=== PATIENT | female | born 1980 | race Caucasian/White ===

== ENCOUNTER 2020-11-16 19:20 | Observation (INO) | payer BC, SELFPAY ==
--- NOTE | ~2020-11-16 | CT_ITS ---
EXAMINATION: CT thoracic spine wo con DATE: 11/17/2020 18:32 INDICATION: Numbness and tingling of the chest and inferior to the chest. TECHNIQUE: Computed tomography (CT) of the thoracic spine was performed without intravenous contrast. Automated exposure control and iterative reconstruction technique were employed. The dose-length pro duct was 1164.09 mGy-cm. COMPARISON: None FINDINGS: There is 9 degrees dextrocurvature of thoracic spine. There is mild chronic anterior wedgin g of T7 vertebral body. There is mildly decreased disc height at T6-T7 and T7-T8. At T5-T6, there is a left central extrusion with mild central canal stenosis. At T6-T7, there is a central protrusion wi th mild central canal stenosis. At T7-T8, there is a right central extrusion with mild central canal stenosis. There is multilevel mild facet joint osteoarthritis. No neural foraminal stenosis. IMPRESSION: 1. Mild thoracic spondylosis. Reviewed, dictated and finalized at location A.
--- NOTE | ~2020-11-16 | XR_ITS ---
EXAMINATION: XR lumbar puncture diagnostic EXAM DATE: 11/17/2020 12:07 INDICATION: Ascending numbness started in legs and extending up to arms. TECHNIQUE: Procedure performed and completed on 11/17/2020 12:07. Informed consent was obtained from the patient for doing this procedure. I discussed benefits and risks including bleeding, infection, backache and headache. Alternatives also discussed. The DAP for this procedure was 13.4 Gycm2. Pulse d dose reduction fluoroscopy was used with fluoroscopic time of 0.2 minutes. A total of 5 images obta ined for the exam. A timeout procedure was performed. The back was prepped in standard sterile fashion with Betadine. L4-5 entry site was chosen under fluoroscopic guidance and infiltrated with 2 mL 1% lidocaine. The t hecal sac was then approached from a right paracentral approach using a 5 22G needle. Could not obta in free flow of contrast at this level in spite of needle appearing to be positioned within the theca l canal. The level immediately above, L3-4 was already prepped, and infiltrated with an additional 2 mL of 1% lidocaine. A right paracentral approach was then used at this level with a new 5 inch 22-gauge needle . CSF freely flowed from this location. Opening pressure was less than the length of the needle, arnie ent was placed in reverse Trendelenburg to allow CSF to flow. A total of 11 mL clear cerebral spinal fluid were then drained and placed in 4 consecutive vials which were labeled and sent to lab for kinza lysis. There were no immediate complications. IMPRESSION: Status post fluoroscopic guided lumbar puncture. Reviewed, dictated and finalized at location A.
--- NOTE | ~2020-11-16 | CT_ITS ---
EXAMINATION: CT lumbar spine wo con DATE: 11/17/2020 01:14 INDICATION: Leg numbness and tingling TECHNIQUE: Computed tomography (CT) of the lumbar spine was performed without intravenous contrast. A utomated exposure control and iterative reconstruction technique were employed. The dose-length produ ct was 1280.41 mGy-cm. COMPARISON: None FINDINGS: Proximally degree lumbar levocurvature. Sagittal alignment is normal. Vertebral body heights are norm al. No fracture. Shallow Schmorl's nodes at both sides of the 11 T12 and T12-L1 disc spaces. Disc hei ghts are normal. Mild disc bulges from L1-L2 through L4-L5 resulting in mild central canal stenosis a t L3-L4 and L4-L5. Multilevel mild bilateral facet osteoarthritis throughout the lumbar spine. Mild b ilateral neural foraminal stenosis at L3-L4 and L4-L5. Cholecystectomy clips at the gallbladder fossa . Paravertebral soft tissues are otherwise unremarkable. IMPRESSION: 1. Mild lumbar levocurvature with mild spondylosis. No acute osseous abnormality. Reviewed, dictated and finalized at location A. IMPRESSION: 1. Mild lumbar levocurvature with mild spondylosis. No acute osseous abnormalit y.
--- NOTE | ~2020-11-16 | CT_ITS ---
EXAMINATION: CT brain wo con DATE: 11/17/2020 01:14 INDICATION: Leg numbness and tingling TECHNIQUE: Computed tomography (CT) of the head was performed without intravenous contrast. Sagittal and coronal reconstructions were performed. The mA was adjusted according to patient size. Iterative reconstruction technique was employed. The dose-length product was 605.33 mGy-cm. COMPARISON: None FINDINGS: Postoperative change of bilateral mastoidectomies with bilateral cochlear implant placement. There is secondary streak artifact which obscures portions of the bilateral parietal lobes. No acute intracra nial hemorrhage, acute infarction or abnormal extra axial fluid collection. Ventricles are normal and symmetric. No mass/mass effect. Small right mastoid effusion. The orbits and paranasal sinuses are n ormal. IMPRESSION: 1. No acute intracranial process with assessment in the region of the posterior parietal lobes limite d by streak artifact from bilateral cochlear implants. Reviewed, dictated and finalized at location A. IMPRESSION: 1. No acute intracranial process with assessment in the region of the posterior parietal lobes limited by streak artifact from bilateral cochlear implants.
--- NOTE | ~2020-11-16 | CT_ITS ---
EXAMINATION: CT thoracic spine w con EXAM DATE: 11/18/2020 12:25 INDICATION: T4 symptoms, numbness. Tingling- r/o impingement. MR contraindication of cochlear implant . TECHNIQUE: Spiral CT thoracic spine was performed following following myelogram, intrathecal injecti on of 10 mL Omnipaque 300 solution. Axial, coronal and sagittal images were reviewed. The dose-lizzie th product (DLP) for this examination was 1264.20 mGy-cm. The exposure was tailored according to pat ient size (auto mA exposure control), and iterative reconstruction (ASIR) was used as additional dose reduction technique. Correlation is made to noncontrast thoracic CT from yesterday. FINDINGS: There is good intrathecal opacification, no myelographic block. Mild mid and lower thoracic disc disease with small midthoracic disc bulges and protrusions, some of which indent the spinal cor d anteriorly, but cause no more than mild central canal stenosis. The largest protrusion projects 4 m m into the canal, indenting the spinal cord on right anterior aspect is at the T7-8 level (axial imag e 63). The spinal cord otherwise has uniform thickness throughout. Thoracic neural foramen also appea r widely patent. No endplate erosive change or evidence of extra-axial collection. The thoracic facet joints are unremarkable. Paraspinal soft tissue is unremarkable. IMPRESSION: Mild mid and lower thoracic disc disease, with cord being indented anteriorly at several levels, but no more than mild central canal stenosis. Reviewed, dictated and finalized at location A.
--- NOTE | ~2020-11-16 | XR_ITS ---
EXAMINATION: XR myelogram spine thoracic EXAM DATE: 11/18/2020 12:30 INDICATION: T4 symptoms, numbness, tingling. Clinical concern for cord compression at T4. TECHNIQUE: Informed consent was obtained from the patient for doing intrathecal injection of contras t, myelogram. I discussed benefits and risks including bleeding, infection, backache, headache and s eizure. Alternatives also discussed. The DAP for this procedure was 0.8 Gycm2. Pulsed dose reduction fluoroscopy was used with fluoroscopic time of 0.3 minutes. A total of 19 images obtained for the exa m. Time out procedure was performed. Print Developer radiograph was obtained. An entry site was chosen at the [facility] L3-4 level, the same level as the successful lumbar puncture that was done yesterday. A left par acentral approach was used. Standard sterile prep was done with Betadine. Entry site was infiltrate d with 5 cc 1% lidocaine. A 5 22G spinal needle was then inserted into the spinal canal. 10 mL Omn ipaque 350 solution were then injected into the thecal sac. Patient was placed in Trendelenburg to al low contrast to flow to the thoracic region. Frontal and limited oblique fluoroscopic images thoracic spine were then acquired. The patient was t hen transferred to CT scan for postcontrast imaging. Following this, inpatient was brought back to her room. There were no immediate complications. FINDINGS: There are rudimentary T12 ribs. There is no myelographic block. IMPRESSION: Successful intrathecal injection of contrast. No myelographic block. Reviewed, dictated and finalized at location A. IMPRESSION: Successful intrathecal injection of contrast. No myelographic bloc k.
[2020-11-16 20:20] VITALS: BP 150/74; PULSE 76; RESP 18; TEMP 36.3; O2SAT 100
[2020-11-16 20:57] VITALS: BP 142/72; PULSE 72; RESP 16; TEMP 36.6; O2SAT 99
[2020-11-16 21:57] LABS: Basophils Percent Auto 0.4 % (0.2-1.2); Eosinophils Absolute Auto 0.1 K/mm3 (0-0.3); Eosinophils Percent Auto 1.3 % (0-4.4); Hematocrit 41.8 % (37.0-47.0); Hemoglobin 13.1 g/dL (12.0-15.0); Immature Granulocyte Absolute 0.05 K/mm3 (0.00-0.031); Immature Granulocyte Percent A 0.4 % (0-0.5); Lymphocytes Absolute Auto 2.59 K/mm3 (0.9-3.2); Lymphocytes Percent Auto 23.2 % (18.3-44.2); Mean Corpuscular HGB Conc 31.3 g/dl (32-36); Mean Corpuscular Hemoglobin 26.1 pg (26-34); Mean Corpuscular Volume 83.3 fl (80-100); Mean Platelet Volume 9.5 fl (7.4-10.4); Monocytes Absolute Auto 0.5 K/mm3 (0.1-0.6); Monocytes Percent Auto 4.5 % (2.6-8.5); Neutrophils Absolute Auto 7.9 K/mm3 (1.3-6.7); Neutrophils Percent Auto 70.2 % (45.5-73.1); Platelet Count Result 308 k/mm3 (150-375); Red Blood Count 5.02 M/mm3 (4.2-5.4); Red Cell Distribution Width 16.3 % (11.5-14.5); White Blood Count 11.2 K/mm3 (4.5-10.0)
[2020-11-16 22:10] LABS: Alanine Aminotransferase 20 U/L (4-35); Albumin Level 4.3 g/dL (3.5-5.1); Alkaline Phosphatase 71 U/L (38-126); Anion Gap 6 mmol/L (8-16); Aspartate Amino Transferase 15 U/L (14-36); Bilirubin,Total 0.5 mg/dL (0.2-1.3); Blood Urea Nitrogen 14 mg/dL (7-17); Calcium 9.4 mg/dL (8.4-10.2); Carbon Dioxide 35 mmol/L (22-30); Chloride 99 mmol/L (98-107); Estimated CRCL calculation 113 ml/min; Estimated Glomerular Filt Rate > 60; Glucose 138 mg/dL (65-105); Magnesium 1.9 mg/dL (1.6-2.3); Potassium 3.4 mmol/L (3.4-5.0); Sodium 140 mmol/L (137-145)
[2020-11-16 23:07] VITALS: BP 142/70; PULSE 72; RESP 16; O2SAT 99
--- NOTE | 2020-11-16 23:09 | ED.EXTPRO ---
HPI - Extremity Problem General Chief complaint: Extremity Problem,Nontraumatic Stated complaint: numbness legs x 4 days Time Seen by Provider: 11/16/20 20:57 Source: patient Mode of arrival: ambulatory Limitations: no limitations History of Present Illness HPI Narrative: This is a 40 year old female who presents for evaluation of bilateral leg numbness, tingling. She reports starting on Sunday she woke up with tingling to her feet. She states her numbness and tingling has continued to progress and she feels like it has moved up to her breast. She denies leg weakness, trouble walking, urinary retention or incontinence. She denies URI symtoms, cough, chest pain, diarrhea, nausea, vomiting, abdominal pain or back pain. Related Data Home Medications Medication Instructions Recorded Confirmed Lacto.acidophilus-Bif.animalis 1 cap PO DAILY 11/17/20 11/17/20 [Daily Probiotic] cetirizine [Zyrtec] 10 mg PO DAILY 11/17/20 11/17/20 hgiteezrxjug-avk-khrh-FA-vit K 1 tablet PO DAILY 11/17/20 11/17/20 [Adults Multivitamin] triamterene-hydrochlorothiazid 1.5 tablet PO DAILY 11/17/20 11/17/20 Allergies Allergy/AdvReac Type Severity Reaction Status Date / Time latex Allergy Mild Itching Verified 11/16/20 21:04 Review of Systems Review of Systems: All systems reviewed & are unremarkable except as noted in HPI and below PMFSH Past Medical History Medical History (Updated 11/17/20 @ 06:53 by Laurel Coffey MD) Hearing loss Surgical History Surgical History (Updated 11/16/20 @ 23:11 by Laurel Coffey MD) History of cochlear implant Family History Family History Other No family history of disorders Social History Social History (Updated 11/16/20 @ 23:11 by Laurel Coffey MD) Smoking status: Never smoker Alcohol intake: never Substance use: never Substance use type: does not use Spiritual care concerns: No Exam Const: General: no acute distress and alert Orientation/consciousness: patient oriented x3 Eyes: EOM: EOMs intact bilaterally Chest: Chest palpation & inspection: normal inspection of the chest Resp: Effort & Inspection: normal respiratory effort and no retractions Auscultation: clear to auscultation bilaterally Cardio: Rate: regular rate Rhythm: regular rhythm Heart sounds: no murmurs GI: GI Palp: Yes Soft to palpation, No Tenderness to palpation present (GI) and No Guarding due to palpation present (GI) Auscultation: normal bowel sounds Back/Spine/Pelvis: Back: no CVA tenderness Skin: General skin exam: normal color Rashes: no rashes Neuro: General: patient oriented x3, moves all extremities, no meningeal signs, no focal motor deficits and CN's II-XI intact bilaterally Cranial nerves: Yes Nystagmus not present Speech: normal speech Gait exam (Neuro): Normal gait present Other: patient has equal sensation bilaterally. She is able to feel dull and sharp but states it feels weird. Psych: Mental Status: mental status grossly normal Affect: normal affect Course Consultations Consultation #1: I Discussed with Dr. Win patient presented with ascending numbness, tingling. He recommends admission , MRI and LP. Date: 11/16/20 Time: 23:17 Consultation #2: I discussed case and my discussion with Dr. Win. I discussed patient with cochlear implant. HE recommends Ct brain and he will admit if normal. He is okay with my ordering LP for tomorrow and have patient reassessed tomorrow by Dr. Win for further recommendations Date: 11/17/20 Time: 00:46 Vital Signs Vital signs: Vital Signs Temperature 97.4 F L 11/16/20 20:20 Pulse Rate 76 11/16/20 20:20 Respiratory Rate 18 11/16/20 20:20 Blood Pressure 150/74 H 11/16/20 20:20 Pulse Oximetry 100 11/16/20 20:20 Temperature 98 F 11/17/20 06:00 Pulse Rate 78 11/17/20 06:00 Respiratory Rate 16 11/17/20 06:00 Blood Pressure 142
[2020-11-16 23:32] LABS: Folic Acid > 20.0 ng/mL (2.76->20)
[2020-11-17 02:45] VITALS: BMI 42.3
[2020-11-17 02:50] VITALS: BP 128/73; BP 139/64; PULSE 66; PULSE 78; RESP 16; RESP 18; TEMP 35.9; TEMP 36.7; O2SAT 96; O2SAT 99
--- NOTE | 2020-11-17 03:11 | ADMGEN ---
This patient, Patsy Soriano, was admitted to 3 Med Surg Room 321-02. Patient/family oriented to hospital policies and general routines including ID bracelet, bed and alarms, visiting hours, pain management, procedures, bathroom and other care routines, personal items, smoking policy, room service/diet, and visiting hours. Information on how to activate the Rapid Response Team has been discussed. Patient/Family are encouraged to report perceived risks to care and to ask questions if they do not understand what they are told or what they should do.
[2020-11-17 06:00] VITALS: BP 142/86; PULSE 78; RESP 16; TEMP 36.6; O2SAT 99
--- NOTE | 2020-11-17 09:33 | PM.IMHP ---
H&P: HPI History of Present Illness Date/Time: 11/17/20 09:33 Chief Complaint: Numbness to extremities Narrative: This is a 40 year old woman with history of Meniere's disease and deafness with bilateral cochlear implants, who presented to the ER with complaints of gradually worsening numbness. The patient states she has been in her usual health until Sunday11/13/20, when she woke up with numbness and tingling to her toes. Over the last few days the numbness and tingling has progressively gotten worse and is now under her breasts bilaterally. She denies any pain, weakness, gait disturbance, headache, vision changes, lightheadedness, dizziness, bowel or bladder incontinence, recent illnesses, recent vaccinations, history of COVID-19, sick contacts, trauma to her back or other injury, breathing issues or swallowing issues or any other concerns other than the numbness and tingling. Code Status- Full Code Review of Systems Review of Systems: All systems reviewed & are unremarkable except as noted in HPI and below PMFSH Past Medical History Medical History (Updated 11/17/20 @ 09:43 by Leda Robin PA-C) Allergies Hearing loss Status post cochlear implants bilaterally Menieres disease Surgical History Surgical History History of cochlear implant Family History Family History Other No family history of disorders Social History Social History (Updated 11/17/20 @ 09:38 by Leda Robin PA-C) Smoking status: Never smoker Alcohol intake: never Substance use: never Substance use type: does not use Living arrangements: with family Additional living arrangements comments: The patient lives in [place], [place] and is here visiting her parents during her children's Spring break Additional occupation/education comments: The patient works from home Spiritual care concerns: No Meds Home Medications and Allergies Home Medications Medication Instructions Recorded Confirmed Type Lacto.acidophilus-Bif.animalis 1 cap PO DAILY 11/17/20 11/17/20 History [Daily Probiotic] cetirizine [Zyrtec] 10 mg PO DAILY 11/17/20 11/17/20 History fusbzfqdzrky-nww-ueln-FA-vit K 1 tablet PO DAILY 11/17/20 11/17/20 History [Adults Multivitamin] triamterene-hydrochlorothiazid 1.5 tablet PO DAILY 11/17/20 11/17/20 History Allergies Allergy/AdvReac Type Severity Reaction Status Date / Time latex Allergy Mild Itching Verified 11/16/20 21:04 Vital Signs Vital Signs - 24 hr 11/16/20 20:20 11/16/20 20:57 11/16/20 23:07 Temperature 97.4 F L 97.8 F Pulse Rate 76 72 72 Respiratory Rate 18 16 16 Blood Pressure 150/74 H 142/72 H 142/70 H Pulse Oximetry 100 99 99 11/17/20 02:50 11/17/20 06:00 Temperature 96.7 F L 98 F Pulse Rate 66 78 Respiratory Rate 18 16 Blood Pressure 139/64 142/86 H Pulse Oximetry 96 99 Exam Narrative: Exam Narrative: General: 40-year-old woman sitting up in bed, finishing breakfast. Appears comfortable. In no acute distress. Skin: No signs of trauma, erythema. No jaundice or cyanosis. Good skin turgor. Neck: Full range of motion. Supple. Respiratory: Lungs are clear to auscultation bilaterally. No wheezing, rales or rhonchi. No bony chest wall tenderness. Cardiovascular: The heart has a regular rate and rhythm without murmur. Lower extremities: No lower extremity edema. Distal pulses are easily palpated. No calf tenderness to palpation. Gastrointestinal: The abdomen is soft, nontender and nondistended with active bowel sounds. Psychiatric: Lucid and oriented. Memory intact. Neurologic: A&Ox4. Sensation changes to bilateral lower extremities with sharp to dull testing. Equal strength bilaterally. No focal deficits. Speech is clear. No facial drooping. H&P: Results Labs Labs: Short CBC 11/16/20 Range/Units 21:51 WBC 11.2 H (
[2020-11-17] MEDS: TRIAMTERENE/HCTZ 18.75/12.5 MG TABLET 1 TAB PO (09:46)
[2020-11-17] MEDS: LORATADINE 10 MG TABLET PO (09:46)
[2020-11-17] MEDS: TRIAMTERENE 37.5 MG/HCTZ 25 MG (MAXZIDE) TABLET 1 TAB PO (09:46)
[2020-11-17 09:57] LABS: Basophils Percent Auto 0.4 % (0.2-1.2); Eosinophils Absolute Auto 0.1 K/mm3 (0-0.3); Eosinophils Percent Auto 0.8 % (0-4.4); Hematocrit 38.2 % (37.0-47.0); Hemoglobin 12.3 g/dL (12.0-15.0); Immature Granulocyte Absolute 0.03 K/mm3 (0.00-0.031); Immature Granulocyte Percent A 0.3 % (0-0.5); Lymphocytes Absolute Auto 1.89 K/mm3 (0.9-3.2); Lymphocytes Percent Auto 17.8 % (18.3-44.2); Mean Corpuscular HGB Conc 32.2 g/dl (32-36); Mean Corpuscular Hemoglobin 26.6 pg (26-34); Mean Corpuscular Volume 82.5 fl (80-100); Mean Platelet Volume 9.9 fl (7.4-10.4); Monocytes Absolute Auto 0.4 K/mm3 (0.1-0.6); Monocytes Percent Auto 3.7 % (2.6-8.5); Neutrophils Absolute Auto 8.2 K/mm3 (1.3-6.7); Platelet Count Result 277 k/mm3 (150-375); Red Blood Count 4.63 M/mm3 (4.2-5.4); Red Cell Distribution Width 16.5 % (11.5-14.5); White Blood Count 10.6 K/mm3 (4.5-10.0)
[2020-11-17 10:06] LABS: Prothrombin Time 13.3 Seconds (11.1-14.7)
[2020-11-17 10:07] LABS: Partial Thromboplastin Time 26.3 SECONDS (22.3-36.8)
[2020-11-17 10:10] LABS: Magnesium 1.9 mg/dL (1.6-2.3)
[2020-11-17 10:12] LABS: Alanine Aminotransferase 19 U/L (4-35); Albumin Level 4.1 g/dL (3.5-5.1); Alkaline Phosphatase 67 U/L (38-126); Anion Gap 5 mmol/L (8-16); Aspartate Amino Transferase 13 U/L (14-36); Bilirubin,Total 0.7 mg/dL (0.2-1.3); Blood Urea Nitrogen 12 mg/dL (7-17); CRP 1.8 mg/dL (<1.0); Calcium 9.5 mg/dL (8.4-10.2); Carbon Dioxide 33 mmol/L (22-30); Chloride 100 mmol/L (98-107); Estimated CRCL calculation 113 ml/min; Estimated Glomerular Filt Rate > 60; Glucose 151 mg/dL (65-105); Potassium 3.5 mmol/L (3.4-5.0); Sodium 138 mmol/L (137-145)
[2020-11-17 10:37] LABS: Erythrocyte Sedimentation Rate 44 mm/hr (0-20)
[2020-11-17 11:12] VITALS: BP 124/71; PULSE 77; RESP 16; O2SAT 96
[2020-11-17 12:03] VITALS: BP 121/72; PULSE 74; RESP 18; O2SAT 94
[2020-11-17 12:26] LABS: Glucose CSF 64 mg/dL (40-70); Total Protein CSF 49 mg/dL (12-60)
[2020-11-17 13:18] LABS: Appearance CSF Clear (Clear); CSF source CSF; Color CSF Colorless (Colorless); Lymphocytes CSF 88 % (40-80); Monocytes CSF 9 % (15-45); Nucleated Cell CSF 8 /uL (0-5); Red Blood Cell CSF 11 (0-2)
[2020-11-17 14:00] VITALS: BP 112/54; PULSE 74; RESP 16; TEMP 36.2; O2SAT 99
--- NOTE | 2020-11-17 14:10 | WPDNEURCNPN ---
Assessment and Plan Assessment and plan (1) Bilateral leg numbness: Code(s): R20.0 - Anesthesia of skin Status: Acute Additional Plan complain of numbness up to the nipple level I will obtain the CT scan of the thoracic spine as we cannot obtain the MRI Consult date: 11/17/20 Time Seen: 14:00 HPI: Patsy Soriano is a 40 year old female Has been admitted to the hospital through the emergency room for the complaints of worsening numbness in her lower extremities she woke up with numbness and tingling to her toes over the last several days the numbness and tingling has progressively getting worse and has reached up to her breast bilateral he gives no history of any pain weakness headache nausea vomiting or bowel or bladder incontinence. she does have ongoing history of hearing loss and has undergone cochlear implants bilaterally in addition to the Meniere's disease, LAMBERT pending CSF with 11 RBCs 8 nucleated cells and 88 lymphocytes 9% monos side only 1 is no fails glucose 64 and protein 49, lumbar CT scan negative with minimal lumbar levo curvature Review of Systems Review of Systems: All systems reviewed & are unremarkable except as noted in HPI and below PMFSH Past Medical History Medical History Allergies Hearing loss Status post cochlear implants bilaterally Menieres disease Surgical History Surgical History History of cochlear implant Family History Family History Other No family history of disorders Social History Social History (Updated 11/17/20 @ 09:38 by Leda Robin PA-C) Smoking status: Never smoker Alcohol intake: never Substance use: never Substance use type: does not use Living arrangements: with family Additional living arrangements comments: The patient lives in [place], [place] and is here visiting her parents during her children's Spring break Additional occupation/education comments: The patient works from home Spiritual care concerns: No Meds Home Medications and Allergies Home Medications Medication Instructions Recorded Confirmed Type Lacto.acidophilus-Bif.animalis 1 cap PO DAILY 11/17/20 11/17/20 History [Daily Probiotic] cetirizine [Zyrtec] 10 mg PO DAILY 11/17/20 11/17/20 History veaifsyeahzq-bqd-farc-FA-vit K 1 tablet PO DAILY 11/17/20 11/17/20 History [Adults Multivitamin] triamterene-hydrochlorothiazid 1.5 tablet PO DAILY 11/17/20 11/17/20 History Allergies Allergy/AdvReac Type Severity Reaction Status Date / Time latex Allergy Mild Itching Verified 11/16/20 21:04 Vital Signs Vital Signs - 24 hr 11/16/20 20:20 11/16/20 20:57 11/16/20 23:07 Temperature 36.3 C L 36.6 C Pulse Rate 76 72 72 Respiratory Rate 18 16 16 Blood Pressure 150/74 H 142/72 H 142/70 H Pulse Oximetry 100 99 99 11/17/20 02:50 11/17/20 06:00 11/17/20 11:12 Temperature 35.9 C L 36.6 C Pulse Rate 66 78 77 Respiratory Rate 18 16 16 Blood Pressure 139/64 142/86 H 124/71 Pulse Oximetry 96 99 96 11/17/20 12:03 Temperature Pulse Rate 74 Respiratory Rate 18 Blood Pressure 121/72 Pulse Oximetry 94 Exam Const: General: cooperative, healthy appearing, comfortable, alert and awake Nutritional Appearance: obese Limitations: no limitations HENMT: Head: normocephalic Ears: hearing grossly normal bilaterally General nose exam: Normal external nose present Face and sinus: normal facial exam Mouth: Yes Normal oral and palatal mucosa present Eyes: General: appearance normal, both eyes and all related structures Neck: Neck: full ROM and no meningeal signs Resp: Effort & Inspection: normal respiratory effort Auscultation: clear to auscultation bilaterally Cardio: Jugular venous distension: no JVD Palpation: normal PMI Rate: regular rate Rhythm: regular rhythm GI: Auscultation: norm
--- NOTE | 2020-11-17 19:01 | PC.NURSE ---
1210 pt returned from radiology after lumbar puncture must remain flat for 2 hours, pt alert no distress.
[2020-11-17 22:00] VITALS: BP 119/78; PULSE 68; RESP 20; TEMP 36.6; O2SAT 97
--- NOTE | 2020-11-17 22:33 | PC.NURSE ---
MD Gupta called due to patient complaining of not being able to sleep for days. patient wanted something more to help sleep. Physician stated No
[2020-11-18 06:00] VITALS: BP 99/65; PULSE 66; RESP 18; TEMP 36.7; O2SAT 99
--- NOTE | 2020-11-18 07:00 | PC.NURSE ---
All assessment and meds passed from 189911/17/2020 by TAYLOR Valentine were passed by Minnie Ontiveros.
[2020-11-18 07:46] LABS: Basophils Absolute Auto 0.1 K/mm3 (0.0-0.1); Basophils Percent Auto 0.5 % (0.2-1.2); Eosinophils Absolute Auto 0.2 K/mm3 (0-0.3); Eosinophils Percent Auto 1.6 % (0-4.4); Hematocrit 38.1 % (37.0-47.0); Hemoglobin 12.1 g/dL (12.0-15.0); Immature Granulocyte Absolute 0.06 K/mm3 (0.00-0.031); Immature Granulocyte Percent A 0.6 % (0-0.5); Lymphocytes Absolute Auto 2.53 K/mm3 (0.9-3.2); Lymphocytes Percent Auto 25.6 % (18.3-44.2); Mean Corpuscular HGB Conc 31.8 g/dl (32-36); Mean Corpuscular Volume 81.9 fl (80-100); Mean Platelet Volume 10.3 fl (7.4-10.4); Monocytes Absolute Auto 0.6 K/mm3 (0.1-0.6); Monocytes Percent Auto 5.8 % (2.6-8.5); Neutrophils Absolute Auto 6.5 K/mm3 (1.3-6.7); Neutrophils Percent Auto 65.9 % (45.5-73.1); Platelet Count Result 284 k/mm3 (150-375); Red Blood Count 4.65 M/mm3 (4.2-5.4); Red Cell Distribution Width 16.4 % (11.5-14.5); White Blood Count 9.9 K/mm3 (4.5-10.0)
[2020-11-18 08:05] LABS: Anion Gap 4 mmol/L (8-16); Blood Urea Nitrogen 11 mg/dL (7-17); CRP 1.8 mg/dL (<1.0); Calcium 9.2 mg/dL (8.4-10.2); Carbon Dioxide 34 mmol/L (22-30); Chloride 99 mmol/L (98-107); Estimated CRCL calculation 147 ml/min; Estimated Glomerular Filt Rate > 60; Glucose 116 mg/dL (65-105); Magnesium 1.9 mg/dL (1.6-2.3); Potassium 3.7 mmol/L (3.4-5.0); Sodium 137 mmol/L (137-145)
[2020-11-18 08:40] VITALS: O2SAT 93
[2020-11-18] MEDS: TRIAMTERENE 37.5 MG/HCTZ 25 MG (MAXZIDE) TABLET 1 TAB PO (08:45)
[2020-11-18] MEDS: TRIAMTERENE/HCTZ 18.75/12.5 MG TABLET 1 TAB PO (08:45)
[2020-11-18] MEDS: LORATADINE 10 MG TABLET PO (08:45)
[2020-11-18 09:00] VITALS: PULSE 66; RESP 18; O2SAT 93
[2020-11-18 10:04] LABS: Hemoglobin A1C 5.8 % (<5.7)
--- NOTE | 2020-11-18 10:28 | WPDNEUROPN ---
Progress Note: A&P Assessment and Plan (1) Bilateral leg numbness: Code(s): R20.0 - Anesthesia of skin Status: Acute Additional Plan CT myelogram is being done today Review of Systems Review of Systems: All systems reviewed & are unremarkable except as noted in HPI and below Exam Const: General: cooperative, healthy appearing, comfortable and no acute distress Nutritional Appearance: overweight Orientation/consciousness: patient oriented x3 Limitations: no limitations HENMT: Head: normocephalic Ears: hearing grossly normal bilaterally ( with cochlear implant) General nose exam: Normal external nose present Face and sinus: normal facial exam Mouth: Yes Normal oral and palatal mucosa present Eyes: Alignment and Position: alignment normal Resp: Effort & Inspection: normal respiratory effort Auscultation: clear to auscultation bilaterally Cardio: Rate: regular rate Rhythm: regular rhythm GI: Auscultation: normal bowel sounds Neuro: General: patient oriented x3 Cranial nerves: Yes CN's II-XII intact bilaterally Speech: normal speech Motor exam (neuro): 5/5 motor strength present throughout Sensory Exam: Sensory deficit (Neuro) Deep tendon reflexes (DTR's): Right triceps reflex intensity grade: 1+, Left triceps reflex intensity grade: 1+, Rt Biceps (C5, C6): 1+, Left biceps reflex intensity grade: 1+, Right brachioradialis reflex intensity grade: 1+, Left brachioradialis reflex intensity grade: 1+, Right patellar reflex intensity grade: 1+, Left patellar reflex intensity grade: 1+, Right ankle reflex intensity grade: 1+ and Left ankle reflex intensity grade: 1+ Plantar Reflex Responses: downgoing: bilateral Psych: Appearance: grossly normal Objective Data Vital Signs Vital Signs: Vital Signs - 24 hr 11/17/20 11:12 11/17/20 12:03 11/17/20 14:00 Temperature 36.2 C L Pulse Rate 77 74 74 Respiratory Rate 16 18 16 Blood Pressure 124/71 121/72 112/54 L Pulse Oximetry 96 94 99 11/17/20 22:00 11/18/20 06:00 11/18/20 08:40 Temperature 36.6 C 36.7 C Pulse Rate 68 66 Respiratory Rate 20 18 Blood Pressure 119/78 99/65 L Pulse Oximetry 97 99 93 Intake/Output Intake/Output: Intake & Output 11/15/20 11/16/20 11/17/2011/18/21 23:59 23:59 23:59 23:59 Intake Total 1470 320 Output Total 600 Balance 1470 -280 Meds/Results Medications: Active Medications Generic Name Dose Route Start Last Admin Trade Name Joshq PRN Reason Stop Dose Admin Loratadine 10 mg 11/17/20 10:00 11/18/20 08:45 Loratadine 10 Mg Tablet PO 12/18/20 10:01 10 mg DAILY ALPHONSO Administration Ondansetron HCl 4 mg 11/17/20 01:45 Ondansetron Inj 4 Mg/2 Ml Vial IV PUSH Q4H PRN Nausea Triamterene/Hydrochlorothiazide 1 tab 11/17/20 10:00 11/18/20 08:45 Triamterene 37.5 Mg/Hctz 25 Mg (Maxzide) Tablet PO 1 tab DAILY ALPHONSO Administration Triamterene/Hydrochlorothiazide 1 tab 11/17/20 10:00 11/18/20 08:45 Triamterene/Hctz 18.75/12.5 Mg Tablet PO 1 tab DAILY ALPHONSO Administration Radiology Results: ITS Impressions Head CT 11/17/20 07:42 IMPRESSION: 1. No acute intracranial process with assessment in the region of the posterior parietal lobes limited by streak artifact from bilateral cochlear implants. Lumbar Spine CT 11/17/20 08:06 IMPRESSION: 1. Mild lumbar levocurvature with mild spondylosis. No acute osseous abnormality. Lumbar Puncture Fluoroscopy 11/17/20 12:47 IMPRESSION: Status post fluoroscopic guided lumbar puncture. Thoracic Spine CT 11/17/20 18:43 IMPRESSION: 1. Mild thoracic spondylosis. Labs Labs: Laboratory Results - last 24 hr 11/17/20 11/17/20 11/17/20 09:47 11:58 11:58 WBC RBC Hgb Hct MCV MCH MCHC RDW Plt Count MPV Immature Gran % (Auto) Neut % (Auto) Lymph % (Auto) [place] % (Auto) Eos % (Auto) Baso % (Auto) Lymph # (Auto) [place] # (Auto) Eos
[2020-11-18 11:47] VITALS: BP 143/86; PULSE 81; RESP 16; O2SAT 96
[2020-11-18 12:25] VITALS: BP 140/73; PULSE 70; RESP 16; O2SAT 96
--- NOTE | 2020-11-18 13:33 | PM.DS ---
DS: Admitting Diagnosis Admitting Diagnosis Admitting Diagnosis: Numbness and tingling DS: Discharge Diagnosis Discharge Diagnosis (1) Bilateral leg numbness: Code(s): R20.0 - Anesthesia of skin Status: Acute Assessment and Plan: Patient is a 40-year-old woman with a history of Meniere's disease and deafness with bilateral cochlear implants, who presented to the ER with complaints of gradually worsening numbness. The patient states she has been in her usual health until Sunday11/13/20, when she woke up with numbness and tingling to her toes. Over the last few days the numbness and tingling has progressively gotten worse and is now under her breasts bilaterally. CT brain showed intracranial process with some streaking artifact due to bilateral cochlear implants CT lumbar spine showed mild lumbar levocurvature with mild spondylosis. No acute osseous abnormality. CT thoracic spine was obtained due to the patient's symptoms going similar to an issue with T4 distribution. CT thoracic spine showed There is 9 degrees dextrocurvature of thoracic spine. There is mild chronic anterior wedging of T7 vertebral body. There is mildly decreased disc height at T6-T7 and T7-T8. At T5-T6, there is a left central extrusion with mild central canal stenosis. At T6-T7, there is a central protrusion with mild central canal stenosis. At T7-T8, there is a right central extrusion with mild central canal stenosis. Discussed the patient's case with our neurologist as well as [facility]. They both recommended getting a CT thoracic myelogram to rule out any acute impingement causing symptoms around the T4 area. The patient was in agreement and this was performed showing Mild mid and lower thoracic disc disease, with cord being indented anteriorly at several levels, but no more than mild central canal stenosis. No signs of findings causing symptoms. The patient did had elevated ESR/CRP. Normal white blood cell count and neutrophil count without any concerns for underlying infection. Lumbar puncture was performed with gram stain showing few white blood cells and no organisms. Was otherwise clear, colorless, with few RBCs, 8 nucleated cells, 88 lymphocytes, normal glucose and normal total protein levels. We are pending results for MS panel, Lyme disease panel, herpes panel as well as LAMBERT screening. Patient's vitamin B12 folic acid levels were normal. She will need further vitamin deficiency testing which include copper and vitamin-E. The patient otherwise feels stable at this time, with no worsening of her symptoms, no improvement as well. Our neurologist recommends her being discharged at this time, to follow-up with him as an outpatient and to go over her CSF fluid workup in about 1 week. The patient has been given a disc of her imaging so she can end up falling with a closer neurologist or going to a tertiary care center for further evaluation. Gave her return to emergency room warnings which she understands. All questions answered. (2) Menieres disease: Code(s): H81.09 - Meniere's disease, unspecified ear Status: Inactive Assessment and Plan: Will continue her diuretic for her chronic Meniere's disease. DS: Summary Hospital Course Reason for hospitalization: Hospital Course: see above Status at Discharge Cognitive/behavioral status at discharge: Stable, improved. Time Spent with Patient Time attestation: Total time spent providing and/or coordinating discharge services: 30 Time spent: Greater than 30 minutes Exam Narrative: Exam Narrative: General: 40-year-old woman laying on her left side in bed on the phone with her daughter crying. Appears anxious about everything going on. In no acute distress. Skin: No signs of trauma, erythema. No jaundice or cyanosis. Good skin turgor. Neck: Full range of motion
[2020-11-18] MEDS: ACETAMINOPHEN 500 MG TABLET 1000 MG PO (14:50)
[2020-11-19 08:48] LABS: Herpes Simplex Type 1 DNA PCR Not Detected (Not Detected); Herpes Simplex Type 2 DNA PCR Not Detected (Not Detected)
[2020-11-24 06:57] LABS: Albumin, CSF 25.3 mg/dL (8.0-42.0); Albumin, Serum 3.6 g/dL (3.5-5.2); IgG Index, CSF 0.69 (<0.66); IgG, CSF 4.4 mg/dL (0.8-7.7); Immunoglobulin G, Serum 906 mg/dL (600-1640); Myelin Basic Protein, CSF <2.0 mcg/L (2.0-4.0)
--- NOTE | 2020-11-30 15:36 | PC.NURSE ---
[facility] fluid analysis faxed to Dr. Win. Patient has no PCP.
== END 2020-11-18 15:35 | disposition home or self-care (01) ==
LOC: ANHED 11-17 01:55 → ANH3MEDSUR 11-17 02:21
PROVIDERS: Physician Assistant; Radiology Diagnostic Radiology; Admitting Provider Family Medicine; Emergency Provider General Practice; Visit Provider Family Medicine
DX: R20.0 Anesthesia of skin (principal); H81.09 Meniere's disease, unspecified ear; Z96.21 Cochlear implant status
CPT/HCPCS: 36415; 62303; 62328; 70450; 72128; 72129; 72131; 80048; 80053; 81025; 82040; 82042; 82607; 82746; 82784; 82945; 83036; 83735; 83873; 83916; 84157; 85025; 85610; 85652; 85730; 86038; 86140; 86617; 87205; 87529; 88108; 89051; 96374; 96376; 99285; A9270; G0378; J0131; Q9967